=== PATIENT | female | born 1985 | race Caucasian/White ===

== ENCOUNTER 2020-02-07 03:06 | Emergency (ER) | payer OTHER ==
[2020-02-07 04:03] LABS: BASOPHIL 0.3 % (0-2); EOSINOPHIL 1.9 % (0-5); HCT 46.2 % (37.0-47.0); HGB 15.5 g/dl (12.5-16.0); LYMPHOCYTE 29.4 % (15-48); MCH 30.2 pg (25.0-31.0); MCHC 33.5 g/dL (32.0-36.0); MCV 90.1 fL (78.0-100.0); MONOCYTE 6.7 % (0-12); MPV 10.1 fL (6.0-9.5); NEUTROPHIL 61.4 % (41-80); NRBC 0; PLT 259 K/uL (150-400); RBC 5.13 M/uL (4.20-5.40); RDW 12.5 % (11.5-14.0); WBC 9.3 K/uL (4.0-10.5)
[2020-02-07 04:16] LABS: BILIRUBIN NEGATIVE (NEGATIVE); BLOOD NEGATIVE Ery/uL (NEGATIVE); COLOR YELLOW (YELLOW); GLUCOSE (U) NORMAL (NORMAL); LEUKOCYTES NEGATIVE Leu/uL (NEGATIVE); NITRITE NEGATIVE (NEGATIVE); PROTEIN NEGATIVE (NEGATIVE); UROBILINOGEN 0.2 mg/dL (0.2-1.0); pH 7.5 (5.0-9.0)
[2020-02-07 04:18] LABS: CLARITY SLIGHTLY HAZY (CLEAR)
[2020-02-07 04:39] LABS: ALBUMIN 3.9 g/dL (3.4-5.0); ALKALINE PHOSHATASE 54 U/L (46-116); ALT 21 U/L (14-59); AST 22 U/L (15-37); BILIRUBIN - TOTAL 0.4 mg/dL (0.2-1.0); BUN 13 mg/dL (7-18); BUN/CREAT RATIO (CALC) 18.6 RATIO; CHLORIDE 104 mmol/L (98-107); CO2 (BICARBONATE) 30 mmol/L (21-32); GLUCOSE 100 mg/dL (74-106); POTASSIUM 3.7 mmol/L (3.5-5.1); TOTAL PROTEIN 6.9 g/dL (6.4-8.2)
[2020-02-07 04:41] LABS: C-REACTIVE PROTEIN < 0.20 mg/dL (<=0.90)
[2020-02-07] MEDS ORDERED: ANTIVERT25 MG PO (04:54)
== END 2020-02-07 05:16 | disposition home or self-care (01) ==
LOC: FER 03:06
PROVIDERS: Emergency Medicine Emergency Medical Services
DX: I10 Essential (primary) hypertension (principal); R42 Dizziness and giddiness; F17.210 Nicotine dependence, cigarettes, uncomplicated; Z79.899 Other long term (current) drug therapy; Z88.5 Allergy status to narcotic agent; Z88.6 Allergy status to analgesic agent
CPT/HCPCS: 36415; 71045; 80053; 81003; 84484; 85025; 86140; 93005

== ENCOUNTER 2021-04-14 00:42 | Emergency (ER) | payer OTHER ==
[~2021-04-14 00:42] MED LIST: ANTIVERT25 MG PO
[2021-04-14 01:58] LABS: BILIRUBIN NEGATIVE (NEGATIVE); BLOOD TRACE-INTACT Ery/uL (NEGATIVE); CLARITY CLEAR (CLEAR); COLOR YELLOW (YELLOW); GLUCOSE (U) NORMAL (NORMAL); LEUKOCYTES NEGATIVE Leu/uL (NEGATIVE); NITRITE NEGATIVE (NEGATIVE); PROTEIN NEGATIVE (NEGATIVE); SPECIFIC GRAVITY <=1.005 (1.001-1.030); UROBILINOGEN 0.2 mg/dL (0.2-1.0); pH 6.5 (5.0-9.0)
[2021-04-14 02:23] LABS: BACTERIA TRACE
[2021-04-14] MEDS ORDERED: LOPRESSOR25 MG PO (04:14)
== END 2021-04-14 04:20 | disposition home or self-care (01) ==
LOC: FER 00:42
PROVIDERS: Emergency Medicine
DX: I10 Essential (primary) hypertension (principal); F17.200 Nicotine dependence, unspecified, uncomplicated; Z76.0 Encounter for issue of repeat prescription; Z88.5 Allergy status to narcotic agent; Z88.8 Allergy status to other drugs, medicaments and biological substances; Z91.040 Latex allergy status; Z79.899 Other long term (current) drug therapy
CPT/HCPCS: 81001; 93005